=== PATIENT | male | born 1985 | race Asian ===

== ENCOUNTER 2020-04-07 09:39 | Outpatient (REF) | payer OTHER, SELFPAY ==
[2020-04-07 10:17] LABS: Hematocrit 43.5 % (42-52); Hemoglobin 14.7 g/dl (14.0-18.0); Mean Corpuscular HGB Conc 33.8 g/dl (31.0-36.0); Mean Corpuscular Hemoglobin 31.7 pg (27.0-33.0); Mean Corpuscular Volume 93.8 fL (80-98); Mean Platelet Volume 9.5 fL (9.4-12.4); Platelet Count 231 X10*3/uL (160-400); Red Blood Count 4.64 X10*6/uL (4.60-5.80); Red Cell Distribution Width 11.8 % (11.0-16.0); White Blood Count 4.9 X10*3/uL (4.8-10.8)
[2020-04-07 11:02] LABS: Alanine Aminotransferase 37 U/L (0-40); Albumin Level 4.5 g/dL (3.5-5.0); Alkaline Phosphatase 42 U/L (39-117); Aspartate Amino Transferase 20 U/L (5-37); Bilirubin Direct 0.3 mg/dL (0.0-0.5); Bilirubin Total 0.6 mg/dL (0.0-1.0)
[2020-04-08 14:37] LABS: Hepatitis B Viral DNA Qn - cp 1.15 Log IU/mL (NOT DETECTED); Hepatitis B Viral DNA Qn-IU/mL 14 IU/mL (NOT DETECTED)
[2020-04-09 16:26] LABS: FIB-ALT 33 U/L (9-46); FIB-Alpha-2-Macroglobulin 119 mg/dL (106-279); FIB-Apolipoprotein A1 123 mg/dL (94-176); FIB-GGT 18 U/L (3-90); FIB-Haptoglobin 50 mg/dL (43-212); FIB-Total Bilirubin 0.6 mg/dL (0.2-1.2); Liver Fibrosis Score 0.12; Liver Fibrosis Stage F0; Nec Inflam Act Grade A0; Nec Inflam Act Score 0.13
[2020-04-10 10:12] LABS: Hepatitis BE Antigen REACTIVE (NON-REACTIVE)
== END 2020-04-07 09:40 | disposition home or self-care (01) ==
LOC: HO.10HDL 09:39
PROVIDERS: Visit Provider Internal Medicine Gastroenterology
DX: B18.1 Chronic viral hepatitis B without delta-agent (principal)
CPT/HCPCS: 36415; 80076; 81596; 85027; 87350; 87517

== ENCOUNTER 2021-02-16 10:27 | Outpatient (REF) | payer OTHER, SELFPAY ==
[2021-02-16 11:02] LABS: Hematocrit 43.9 % (42.0-52.0); Hemoglobin 15.1 g/dl (14.0-18.0); Mean Corpuscular HGB Conc 34.4 g/dl (31.0-36.0); Mean Corpuscular Hemoglobin 32.5 pg (27.0-33.0); Mean Corpuscular Volume 94.4 fL (80.0-98.0); Mean Platelet Volume 9.6 fL (9.4-12.4); Platelet Count 226 X10*3/uL (160-400); Red Blood Count 4.65 X10*6/uL (4.60-5.80); Red Cell Distribution Width 12.1 % (11.0-16.0); White Blood Count 6.3 X10*3/uL (4.8-10.8)
[2021-02-16 11:25] LABS: Alanine Aminotransferase 65 U/L (0-40); Albumin Level 4.6 g/dL (3.5-5.0); Alkaline Phosphatase 46 U/L (39-117); Aspartate Amino Transferase 30 U/L (5-37); Bilirubin Direct 0.2 mg/dL (0.0-0.5); Bilirubin Total 0.4 mg/dL (0.0-1.0); Total Protein 7.3 g/dL (6.5-8.0)
[2021-02-18 14:26] LABS: Hepatitis BE Antigen REACTIVE (NON-REACTIVE)
[2021-02-23 08:07] LABS: Hepatitis B Viral DNA Qn - cp 2.99 Log IU/mL (NOT DETECTED); Hepatitis B Viral DNA Qn-IU/mL 968 IU/mL (NOT DETECTED)
== END 2021-02-16 10:28 | disposition home or self-care (01) ==
LOC: HO.LAB 10:27
PROVIDERS: PCP Internal Medicine; Visit Provider Internal Medicine Gastroenterology
DX: B19.10 Unspecified viral hepatitis B without hepatic coma (principal)
CPT/HCPCS: 36415; 80076; 85027; 87350; 87517

== ENCOUNTER 2021-03-10 09:10 | Outpatient (REF) | payer OTHER, SELFPAY ==
[2021-03-10 10:13] LABS: Alanine Aminotransferase 78 U/L (0-40); Albumin Level 4.3 g/dL (3.5-5.0); Alkaline Phosphatase 48 U/L (39-117); Aspartate Amino Transferase 35 U/L (5-37); Bilirubin Direct 0.2 mg/dL (0.0-0.5); Bilirubin Total 0.5 mg/dL (0.0-1.0)
[2021-03-13 13:46] LABS: Hepatitis B Viral DNA Qn - cp 2.66 Log IU/mL (NOT DETECTED); Hepatitis B Viral DNA Qn-IU/mL 456 IU/mL (NOT DETECTED)
== END 2021-03-10 09:11 | disposition home or self-care (01) ==
LOC: HO.LAB 09:10
PROVIDERS: Absent Provider Internal Medicine; PCP Internal Medicine; Visit Provider Internal Medicine Gastroenterology
DX: B18.1 Chronic viral hepatitis B without delta-agent (principal)
CPT/HCPCS: 36415; 80076; 87517

== ENCOUNTER 2021-04-27 08:54 | Outpatient (REF) | payer OTHER, SELFPAY ==
[2021-04-27 10:15] LABS: Alanine Aminotransferase 70 U/L (0-40); Albumin Level 4.3 g/dL (3.5-5.0); Alkaline Phosphatase 52 U/L (39-117); Aspartate Amino Transferase 27 U/L (5-37); Bilirubin Direct 0.2 mg/dL (0.0-0.5); Bilirubin Total 0.4 mg/dL (0.0-1.0); Total Protein 6.8 g/dL (6.5-8.0)
[2021-04-30 09:31] LABS: Hepatitis B Viral DNA Qn - cp 2.56 Log IU/mL (NOT DETECTED); Hepatitis B Viral DNA Qn-IU/mL 365 IU/mL (NOT DETECTED)
[2021-05-04 15:26] LABS: FIB-ALT 56 U/L (9-46); FIB-Alpha-2-Macroglobulin 118 mg/dL (106-279); FIB-Apolipoprotein A1 129 mg/dL (94-176); FIB-GGT 28 U/L (3-90); FIB-Haptoglobin 43 mg/dL (43-212); FIB-Total Bilirubin 0.4 mg/dL (0.2-1.2); Liver Fibrosis Score 0.11; Liver Fibrosis Stage F0; Nec Inflam Act Grade A0-A1; Nec Inflam Act Score 0.27
== END 2021-04-27 08:55 | disposition home or self-care (01) ==
LOC: HO.LAB 08:54
PROVIDERS: PCP Internal Medicine; Visit Provider Internal Medicine Gastroenterology
DX: B18.1 Chronic viral hepatitis B without delta-agent (principal)
CPT/HCPCS: 36415; 80076; 81596; 87517

== ENCOUNTER 2022-02-22 09:20 | Outpatient (REF) | payer OTHER, SELFPAY ==
[2022-02-22 11:20] LABS: MANUAL DIFF FLAG NO
[2022-02-22 11:26] LABS: Basophils Percent Auto 0.6 % (0-2); Eosinophils Absolute Auto 0.2 X10*3/uL (0.0-0.4); Eosinophils Percent Auto 2.8 % (0-4); Hematocrit 45.1 % (42.0-52.0); Hemoglobin 15.4 g/dl (14.0-18.0); Imm Gran Abs Auto 0.01 X10*3/uL (0.00-0.03); Imm Gran Pct Auto 0.1 % (0.0-0.4); Lymphocytes Absolute Auto 1.8 X10*3/uL (1.2-4.9); Lymphocytes Percent Auto 26.7 % (20-40); Mean Corpuscular HGB Conc 34.1 g/dl (31.0-36.0); Mean Corpuscular Hemoglobin 31.6 pg (27.0-33.0); Mean Corpuscular Volume 92.6 fL (80.0-98.0); Mean Platelet Volume 9.9 fL (9.4-12.4); Monocytes Absolute Auto 0.5 X10*3/uL (0.1-1.2); Monocytes Percent Auto 6.9 % (2-11); Neutrophils Absolute Auto 4.3 x10*3/uL (2.0-8.3); Neutrophils Percent Auto 62.9 % (45-73); Platelet Count 254 X10*3/uL (160-400); Red Blood Count 4.87 X10*6/uL (4.60-5.80); Red Cell Distribution Width 11.9 % (11.0-16.0); White Blood Count 6.8 X10*3/uL (4.8-10.8)
[2022-02-22 12:03] LABS: Alanine Aminotransferase 42 U/L (0-40); Albumin Level 4.4 g/dL (3.5-5.0); Alkaline Phosphatase 55 U/L (39-117); Aspartate Amino Transferase 23 U/L (5-37); Bilirubin Direct 0.2 mg/dL (0.0-0.5); Bilirubin Total 0.4 mg/dL (0.0-1.0); Total Protein 6.8 g/dL (6.5-8.0)
[2022-02-23 20:14] LABS: Hepatitis B Viral DNA Qn - cp 1.61 Log IU/mL (NOT DETECTED); Hepatitis B Viral DNA Qn-IU/mL 41 IU/mL (NOT DETECTED)
[2022-02-24 01:14] LABS: Hepatitis BE Antibody NON-REACTIVE (NON-REACTIVE); Hepatitis BE Antigen REACTIVE (NON-REACTIVE)
== END 2022-02-22 09:21 | disposition home or self-care (01) ==
LOC: HO.10HDL 09:20
PROVIDERS: Visit Provider Internal Medicine Gastroenterology
DX: B18.1 Chronic viral hepatitis B without delta-agent (principal)
CPT/HCPCS: 36415; 80076; 85025; 86707; 87350; 87517

== ENCOUNTER 2023-03-05 09:56 | Outpatient (REF) | payer OTHER, SELFPAY ==
[2023-03-05 12:03] LABS: MANUAL DIFF FLAG NO
[2023-03-05 12:17] LABS: Basophils Percent Auto 0.6 % (0-2); Eosinophils Absolute Auto 0.2 X10*3/uL (0.0-0.4); Eosinophils Percent Auto 2.2 % (0-4); Hematocrit 43.4 % (42.0-52.0); Imm Gran Abs Auto 0.02 X10*3/uL (0.00-0.03); Imm Gran Pct Auto 0.3 % (0.0-0.4); Lymphocytes Absolute Auto 1.6 X10*3/uL (1.2-4.9); Lymphocytes Percent Auto 23.8 % (20-40); Mean Corpuscular HGB Conc 34.6 g/dl (31.0-36.0); Mean Corpuscular Hemoglobin 32.4 pg (27.0-33.0); Mean Corpuscular Volume 93.7 fL (80.0-98.0); Mean Platelet Volume 9.9 fL (9.4-12.4); Monocytes Absolute Auto 0.5 X10*3/uL (0.1-1.2); Monocytes Percent Auto 7.3 % (2-11); Neutrophils Absolute Auto 4.4 x10*3/uL (2.0-8.3); Neutrophils Percent Auto 65.8 % (45-73); Platelet Count 241 X10*3/uL (160-400); Red Blood Count 4.63 X10*6/uL (4.60-5.80); White Blood Count 6.7 X10*3/uL (4.8-10.8)
[2023-03-05 12:29] LABS: INTERNATIONAL NORM RATIO 0.9 (0.9-1.1)
[2023-03-05 12:31] LABS: Alanine Aminotransferase 45 U/L (0-40); Albumin Level 4.4 g/dL (3.5-5.0); Alkaline Phosphatase 48 U/L (39-117); Aspartate Amino Transferase 25 U/L (5-37); Bilirubin Direct 0.1 mg/dL (0.0-0.5); Bilirubin Total 0.4 mg/dL (0.0-1.0)
[2023-03-05 13:03] LABS: ~Hepatitis B Surface Antibody NONREACTIVE (Nonreactive)
[2023-03-05 15:02] LABS: HBsAGNum2 Reactive; HBsAGNum3 Reactive; Hepatitis B Surface Antigen Rep Reactive (Negative); Hepatitis B Surface Antigen Retest CNFM (Negative)
[2023-03-07 19:49] LABS: Hepatitis B Viral DNA Qn - cp <1.00 DETECTED Log IU/mL (NOT DETECTED); Hepatitis B Viral DNA Qn-IU/mL <10 DETECTED IU/mL (NOT DETECTED)
[2023-03-09 23:13] LABS: Hepatitis BE Antibody NON-REACTIVE (NON-REACTIVE)
[2023-03-10 11:39] LABS: Hepatitis BE Antigen REACTIVE (NON-REACTIVE)
== END 2023-03-05 09:57 | disposition home or self-care (01) ==
LOC: HO.10HDL 09:56
PROVIDERS: Visit Provider Internal Medicine Gastroenterology
DX: B18.1 Chronic viral hepatitis B without delta-agent (principal)
CPT/HCPCS: 36415; 80076; 85025; 85610; 86706; 86707; 87340; 87350; 87517

== ENCOUNTER 2023-03-28 09:30 | Outpatient (AMB) | payer OTHER, SELFPAY ==
--- NOTE | 2023-03-28 09:37 | MHC.PC.OV ---
Vital Signs 03/28/23 09:38 Height 5 ft 7 in Weight 157 lb 6 oz BMI 24.6 BP 106/72 Blood Pressure Location Lt brachial Position Sitting Pulse 85 Pulse Source Pulse Oximeter Pulse Oximetry (%) 96 Oxygen Delivery Method Room Air Intake Visit Reasons: possible pink eye/ OU eyes hurt Regulator Operator Required: No Accompanied by: Self / Same As Patient Allergies No Known Allergies [No Known Allergies*] Allergy (Unverified 04/02/23 02:15) Medication List - Last Reconciled 04/02/23 by Marcelo Guzman MD azithromycin take 500 mg today (day 1), then 250 mg for 4 days (days 2-5) PO polymyxin B sulf-trimethoprim 10,000 unit- 1 mg/mL 1 drp ophthalmic (eye) QID 7 days triamcinolone acetonide 0.1% 1 appl topical BID PRN Tobacco use date assessed: 03/28/23 Dental Screening Dental Screen Date: 03/28/23 Did you have a dental visit in the last 12 months?: No Did you have a dental problem in the last 6 months where you did not have access to dental care?: No Was dental information given to patient?: Patient has dentist HPI possible pink eye/ OU eyes hurt HPI Details Patient comes in today complaining of increased redness and irritation of both of his eyes for the past 2 to 3 days Recalls that he woke up a couple of days ago with a lot of dried discharge from his eyes, especially on the left eye Denies any blurring of his vision Adds that he's had some symptoms of cough and congestion for a few days now He denies any fever or sore throat Denies any chest pains, no SOB No nausea/vomiting, no abdominal pain No change in bowel habits noted [facility] Medical History (Updated 04/02/23 @ 02:32 by Marcelo Guzman MD) Chronic hepatitis B Surgical History (Updated 04/02/23 @ 02:25 by Marcelo Guzman MD) No pertinent past surgical history Family History Father Essential hypertension Social History Housing: House Patient Tobacco Use Status: Current someday Tobacco user e-Cigarette/Vaping Use: Never Used service: No Current occupational status: employed Cognitive needs: No Hearing needs: No Vision needs: No Questionnaire PHQ-9 Over the last 2 weeks, how often have you been bothered by any of the following problems? 1. Little interest or pleasure in doing things: not at all 2. Feeling down, depressed, or hopeless: not at all 3. Trouble falling or staying asleep, or sleeping too much: not at all 4. Feeling tired or having little energy: not at all 5. Poor appetite or overeating: not at all 6. Feeling bad about yourself - or that you are a failure or have let yourself or your family down: not at all 7. Trouble concentrating on things, such as reading the newspaper or watching television: not at all 8. Moving or speaking so slowly that other people could have noticed. Or the opposite - being so fidgety or restless that you have been moving around a lot more than usual: not at all 9. Thoughts that you would be better off or of hurting yourself in some way: not at all Total score: 0 Depression Screening Interpretation: Negative Depression Screening Done: Yes [id number] - PHQ-9 Billing: Yes Source: Developed by Drs. Radu Loredo, Shirin Sanderson, Denzel Lea and colleagues, with an educational narendra from [employer]. Thrive Questionnaire Date Thrive assessed: 03/28/23 I am a: Patient What is your living situation today?: I have a steady place to live Within the past 12 months, did the food you bought not last and you didn't have the money to get more?: Never true Within the past 12 months, did you worry whether your food would run out before you got money to buy more?: Never true Do you have trouble paying for medicines?: No Do you have trouble getting transportation to medical appointments?: No Do you have trouble paying your heating and electricity bill?: No Do you have trouble taking care of your child, family member or friend?: No Do you have trouble with day-to-day activities such as bathing, preparing meals, shopping, managing finances, etc.?: No Are you currently unemployed and looking for a job?: No Are you interested in more education?: No Please select the resources that you would like help with: None Currently or been in a relationship where the following occur: no concerns reported THRIVE Score: 0 AUDIT C Alcohol Use Questionnaire (AUDIT-C) 1. How often do you have a drink containing alcohol?: 2-4 times a month 2. How many drinks containing alcohol do you have on a typical day when you are drinking?: 1 or 2 3. How often do you have six or more drinks on one occasion?: Never Total Score: 2 Score Reviewed/Action Taken: Yes MISAEL-7 AMB Questionnaire MISAEL-7 Date MISAEL - 7 assessed: 03/28/23 Feeling nervous, anxious, or on edge: 0 = Not at all Not being able to stop or control worryin = Not at all Worrying too much about different things: 0 = Not at all Trouble relaxin = Not at all Being so restless that it is hard to sit still: 0 = Not at all Becoming easily annoyed or irritable: 0 = Not at all Feeling afraid as if something awful might happen: 0 = Not at all Total MISAEL-7 score (0-4 normal; 5-9 mild; 10-14 moderate; 15-21 severe): 0 Source: Developed by Drs. Radu Loredo, Shirin Sanderson, Denzel Lea and colleagues, with an educational narendra from [employer]. Review of Systems Const Denies chills, Denies fatigue, Denies fever(s) and Denies headache(s) Eyes Denies blurry vision, Reports eye discharge (in both eyes) and Reports irritation (both eyes) ENT Denies dysphagia, Denies dizziness, Denies otalgia, Denies headache(s), Reports nasal congestion, Denies neck pain, Denies odynophagia and Denies sore throat Card Denies chest pain, Denies palpitations and Denies dyspnea Resp Denies chest congestion, Reports cough (on and off lately; mostly non-productive), Denies dyspnea and Denies wheezing GI Denies abdominal pain, Denies constipation, Denies dysphagia, Denies heartburn, Denies diarrhea, Denies nausea, Denies odynophagia and Denies vomiting Denies dysuria, Denies nocturia and Denies urinary frequency Musc Denies neck pain Skin/Breast Denies rash Neuro Denies dizziness and Denies headache(s) Endo Denies fatigue and Denies palpitations Aller/Immun Denies wheezing Physical exam (Primary Care) Vital Signs: Last Vital Signs Pulse 85 03/28/23 09:38 BP 106/72 03/28/23 09:38 Pulse Ox 96 03/28/23 09:38 Oxygen Delivery Method Room Air 03/28/23 09:38 BMI result Body Mass Index 24.6 Tobacco/Smoking Status: Tobacco use Status Tobacco use date assessed 03/28/23 03/28/23 09:46 Patient Tobacco Use Status Current someday Tobacco 03/28/23 09:46 e-Cigarette/Vaping Use Never Used 03/28/23 09:46 PHQ-9: PHQ-9 Score PHQ-9: Total score 0 03/28/23 10:01 Depression Screening Interpretation: Negative Thrive Assessment: Date of Thrive Assessment Date Thrive assessed 03/28/23 03/28/23 09:46 Currently or been in a relationship where the following occur: no concerns reported Const General: no acute distress and alert HENMT Ears: TM's normal bilaterally and EAC's normal Throat: Yes posterior oropharynx normal and Yes tonsils normal (no TP congestion) Eyes Conjunctivae: conjunctival abnormal bilateral conjunctival injection Neck Neck: Yes no lymphadenopathy and Yes supple Resp Auscultation: clear to auscultation bilaterally, no rales and no wheezes Cardio Rate: regular rate Rhythm: regular rhythm Heart sounds: no murmurs GI Palpation (GI): Soft to palpation, nontender and No hepatosplenomegaly present Skin General skin exam: no rashes or lesions noted Extrem General: Yes no clubbing, cyanosis or edema Assessment and Plan Assessment & Plan (1) Acute conjunctivitis, bilateral: Code(s): H10.33 - Unspecified acute conjunctivitis, bilateral Qualifiers: Acute conjunctivitis type: unspecified Qualified Code(s): H10.33 - Unspecified acute conjunctivitis, bilateral Plan: Will start patient on Polytrim eyedrops to apply 1 drop to each eye QID x 7 days (2) Upper respiratory tract infection: Code(s): J06.9 - Acute upper respiratory infection, unspecified Qualifiers: URI type: unspecified URI Qualified Code(s): J06.9 - Acute upper respiratory infection, unspecified Plan: Will start patient empirically on Azithromycin x 5 days Plan To return in 6 months for his annual physical examination Medications: New azithromycin take 500 mg today (day 1), then 250 mg for 4 days (days 2-5) PO 6 tabs 0RF Refilled polymyxin B sulf-trimethoprim 10,000 unit- 1 mg/mL 1 drp ophthalmic (eye) QID 7 days 10 mL 0RF polymyxin B sulf-trimethoprim 10,000 unit- 1 mg/mL 1 drp ophthalmic (eye) QID 7 days 10 mL 0RF Coding Level of Care Code Est Pt Level 3 (54160) Diagnoses Acute conjunctivitis of both eyes, unspecified acute conjunctivitis type H10.33 Acute conjunctivitis type: unspecified Upper respiratory tract infection, unspecified type J06.9 URI type: unspecified URI
[2023-03-28 09:38] VITALS: BP 106/72; PULSE 85; O2SAT 96; BMI 24.6
== END 2023-03-28 10:04 | disposition home or self-care (01) ==
PROVIDERS: PCP Internal Medicine; Visit Provider Internal Medicine
DX: H10.33 Unspecified acute conjunctivitis, bilateral (principal); J06.9 Acute upper respiratory infection, unspecified
CPT/HCPCS: 99213

== ENCOUNTER 2023-09-17 09:59 | Outpatient (AMB) | payer OTHER, SELFPAY ==
[2023-09-17 10:13] VITALS: BP 128/78; PULSE 96; O2SAT 98; BMI 25.1
--- NOTE | 2023-09-17 10:13 | MHC.PC.OV ---
Vital Signs 09/17/23 10:13 Height 5 ft 7 in Weight 160 lb 6 oz BMI 25.1 BP 128/78 Blood Pressure Location Lt brachial Position Sitting Pulse 96 Pulse Source Pulse Oximeter Pulse Oximetry (%) 98 Oxygen Delivery Method Room Air Intake Visit Reasons: ANNUAL PE- NEEDS PHQ9 Intake Note: Patient is here today for a physical. Payroll Services Analyst Required: No Accompanied by: Self / Same As Patient Allergies No Known Allergies [No Known Allergies*] Allergy (Unverified 09/17/23 10:41) Medication List - Last Reconciled 09/17/23 by Marcelo Guzman MD tenofovir disoproxil fumarate 300 mg PO DAILY Tobacco use date assessed: 03/28/23 Dental Screening Dental Screen Date: 03/28/23 HPI ANNUAL PE- NEEDS PHQ9 HPI Details Patient comes in today for his annual physical examination States that he feels okay Denies any headaches or dizziness Denies any chest pains, no SOB No nausea/vomiting, no abdominal pain No change in bowel habits noted He denies any acute urinary symptoms He continues to follow up with Dr. Garcia regularly (once a year) for his chronic hepatitis B and currently remains on Viread 300 mg QD He also normally gets yearly labs done for Dr. Garcia (labs last done in February 2023) to monitor his LFTs but he has not had his other labs, including his fasting lipids, done since 2017 [facility] Medical History (Updated 09/17/23 @ 11:02 by Marcelo Guzman MD) Smoker Chronic hepatitis B Surgical History No pertinent past surgical history Family History Father Essential hypertension Social History Housing: House Patient Tobacco Use Status: Current someday Tobacco user e-Cigarette/Vaping Use: Never Used service: No Current occupational status: employed Cognitive needs: No Hearing needs: No Vision needs: No Questionnaire PHQ-9 Over the last 2 weeks, how often have you been bothered by any of the following problems? 1. Little interest or pleasure in doing things: not at all 2. Feeling down, depressed, or hopeless: not at all 3. Trouble falling or staying asleep, or sleeping too much: not at all 4. Feeling tired or having little energy: not at all 5. Poor appetite or overeating: not at all 6. Feeling bad about yourself - or that you are a failure or have let yourself or your family down: not at all 7. Trouble concentrating on things, such as reading the newspaper or watching television: not at all 8. Moving or speaking so slowly that other people could have noticed. Or the opposite - being so fidgety or restless that you have been moving around a lot more than usual: not at all 9. Thoughts that you would be better off or of hurting yourself in some way: not at all Total score: 0 Depression Screening Interpretation: Negative Depression Screening Done: Yes 38165 - PHQ-9 Billing: Yes Source: Developed by Drs. Radu Loredo, Shirin Sanderson, Denzel Lea and colleagues, with an educational narendra from [employer]. Thrive Questionnaire Date Thrive assessed: 03/28/23 AUDIT C Alcohol Use Questionnaire (AUDIT-C) 1. How often do you have a drink containing alcohol?: 2-4 times a month 2. How many drinks containing alcohol do you have on a typical day when you are drinking?: 1 or 2 3. How often do you have six or more drinks on one occasion?: Never Total Score: 2 Score Reviewed/Action Taken: Yes MISAEL-7 AMB Questionnaire MISAEL-7 Date MISAEL - 7 assessed: 03/28/23 Source: Developed by Drs. Radu Loredo, Shirin Sanderson, Denzel Lea and colleagues, with an educational narendra from [employer]. Review of Systems Const Denies chills, Denies fatigue, Denies fever(s), Denies headache(s), Denies malaise and Denies weakness Eyes Denies blurry vision, Denies change in vision, Denies irritation and Denies itchy eyes ENT Denies dysphagia, Denies dizziness, Denies otalgia, Denies headache(s), Denies nasal congestion, Denies neck pain, Denies odynophagia and Denies sore throat Card Denies chest pain, Denies rapid heart rate, Denies irregular heart rhythm, Denies palpitations and Denies dyspnea Resp Denies chest congestion, Denies cough, Denies dyspnea and Denies wheezing GI Denies abdominal pain, Denies bloating, Denies constipation, Denies dysphagia, Denies heartburn, Denies diarrhea, Denies nausea, Denies odynophagia and Denies vomiting Denies hematuria, Denies difficulty urinating, Denies dysuria, Denies urinary frequency and Denies urinary urgency Musc Denies back pain, Denies arthralgias, Denies joint swelling, Denies muscle weakness and Denies neck pain Skin/Breast Denies change in pigmentation, Denies lesions, Denies rash and Denies unusual bruising Neuro Denies dizziness, Denies headache(s), Denies paresthesias and Denies weakness Endo Denies fatigue and Denies palpitations Aller/Immun Denies itchy eyes and Denies wheezing Physical exam (Primary Care) Vital Signs: Last Vital Signs Pulse 96 09/17/23 10:13 BP 128/78 09/17/23 10:13 Pulse Ox 98 09/17/23 10:13 Oxygen Delivery Method Room Air 09/17/23 10:13 BMI result Body Mass Index 25.1 Tobacco/Smoking Status: Tobacco use Status Tobacco use date assessed 03/28/23 09/17/23 10:17 Patient Tobacco Use Status Current someday Tobacco 09/17/23 10:17 e-Cigarette/Vaping Use Never Used 09/17/23 10:17 PHQ-9: PHQ-9 Score PHQ-9: Total score 0 09/17/23 10:17 Depression Screening Interpretation: Negative Thrive Assessment: Date of Thrive Assessment Date Thrive assessed 03/28/23 09/17/23 10:17 Const General: no acute distress, alert and awake Orientation/consciousness: patient oriented x3 HENMT Head: Yes normocephalic and Yes atraumatic Ears: external ears normal, TM's normal bilaterally and EAC's normal General nose exam: No nasal discharge present Face and sinus: Yes normal facial exam and Yes sinuses nontender Teeth and gingiva: dentition normal Throat: Yes posterior oropharynx normal and Yes tonsils normal (no TP congestion) Eyes Eyelids: Yes eyelids normal Conjunctivae: conjunctivae normal Pupils: Equal, round and reactive pupils present EOM: EOMs intact bilaterally Neck Neck: Yes no lymphadenopathy and Yes supple Thyroid: Thyroid normal Resp Auscultation: clear to auscultation bilaterally, no rales and no wheezes Cardio Rate: regular rate Rhythm: regular rhythm Heart sounds: no murmurs GI Palpation (GI): Soft to palpation, nontender and No hepatosplenomegaly present Auscultation: normal bowel sounds General: Yes no CVA tenderness Back/Spine/Pelvis Back: no CVA tenderness Thoracic/Lumbar Spine: thoracic and lumbar spine normal to inspection Skin Lesions: no lesions Rashes: no rashes Neuro General: patient oriented x3, moves all extremities, no focal motor deficits and CN's II-XI intact bilaterally Cranial nerves: Yes Equal, round and reactive pupils present Cognition (Neuro): normal cognition Gait exam (Neuro): Normal gait present Extrem General: Yes no clubbing, cyanosis or edema Assessment and Plan Assessment & Plan (1) Annual physical exam: Code(s): Z00.00 - Encounter for general adult medical examination without abnormal findings Plan: Results of his labs done back in February 2023 reviewed and discussed with patient Advised that these labs are mostly to follow up on his LFTs and his hepatitis B and do not include other parameters like his thyroid, cholesterol levels and vitamin D level Will have him get these (labs) checked/done at the same time when he goes for his yearly labs for Dr. Garcia at the end of the year (2) Chronic hepatitis B: Comment: In treatment with Tenofovir (Viread) QD - sees Dr. Garcia Code(s): B18.1 - Chronic viral hepatitis B without delta-agent Plan: Continue Tenofovir 300 mg QD Follow up with Dr. Garcia as scheduled for continuing management and follow up of his chronic hepatitis B (3) Smoker: Code(s): F17.200 - Nicotine dependence, unspecified, uncomplicated Plan: Counseled again on complete smoking cessation Plan To return in 1 year for his next annual physical examination Orders: Orders Comprehensive [place]. Panel Fast 01/19/24 E78.00 - Pure hypercholesterolemia, unspecified Complete Blood Count Auto Diff 01/19/24 D64.9 - Anemia, unspecified UA CC w/rflx Micro + Cult 01/19/24 R30.0 - Dysuria Lipid Panel 01/19/24 E78.00 - Pure hypercholesterolemia, unspecified TSH reflex Free T4 01/19/24 E78.00 - Pure hypercholesterolemia, unspecified Vitamin D 25-OH Total 01/19/24 E55.9 - Vitamin D deficiency, unspecified Coding Level of Care Code Est Pt Prev Care 18-39y(38962) Diagnoses Annual physical exam Z00.00 Chronic hepatitis B B18.1 Smoker F17.200
== END 2023-09-17 11:00 | disposition home or self-care (01) ==
PROVIDERS: PCP Internal Medicine; Visit Provider Internal Medicine
DX: Z00.00 Encounter for general adult medical examination without abnormal findings (principal); B18.1 Chronic viral hepatitis B without delta-agent; F17.200 Nicotine dependence, unspecified, uncomplicated
CPT/HCPCS: 99395

== ENCOUNTER 2024-03-05 09:27 | Outpatient (REF) | payer OTHER, SELFPAY ==
[2024-03-05 10:20] LABS: MANUAL DIFF FLAG NO
[2024-03-05 10:27] LABS: Basophils Percent Auto 0.5 % (0-2); Eosinophils Absolute Auto 0.1 X10*3/uL (0.0-0.4); Eosinophils Percent Auto 2.2 % (0-4); Hematocrit 43.6 % (42.0-52.0); Hemoglobin 15.2 g/dl (14.0-18.0); Imm Gran Abs Auto 0.01 X10*3/uL (0.00-0.03); Imm Gran Pct Auto 0.2 % (0.0-0.4); Lymphocytes Absolute Auto 1.8 X10*3/uL (1.2-4.9); Mean Corpuscular HGB Conc 34.9 g/dl (31.0-36.0); Mean Corpuscular Hemoglobin 32.4 pg (27.0-33.0); Mean Platelet Volume 9.7 fL (9.4-12.4); Monocytes Absolute Auto 0.4 X10*3/uL (0.1-1.2); Monocytes Percent Auto 7.4 % (2-11); Neutrophils Absolute Auto 3.5 x10*3/uL (2.0-8.3); Neutrophils Percent Auto 59.7 % (45-73); Platelet Count 230 X10*3/uL (160-400); Red Blood Count 4.69 X10*6/uL (4.60-5.80); Red Cell Distribution Width 12.2 % (11.0-16.0); White Blood Count 5.8 X10*3/uL (4.8-10.8)
[2024-03-05 10:41] LABS: INTERNATIONAL NORM RATIO 0.9 (0.9-1.1); Prothrombin Time 10.9 SEC (10.9-12.4)
[2024-03-05 10:45] LABS: Alanine Aminotransferase 57 U/L (0-40); Albumin Level 4.6 g/dL (3.5-5.0); Alkaline Phosphatase 49 U/L (39-117); Aspartate Amino Transferase 34 U/L (5-37); Bilirubin Direct 0.2 mg/dL (0.0-0.5); Bilirubin Total 0.6 mg/dL (0.0-1.0); Total Protein 7.6 g/dL (6.5-8.0)
[2024-03-05 11:57] LABS: HBS Num1 0.82 mIU/mL (0-7.99); HBsAGNum1 6238.73 S/CO (0.00-0.99); ~Hepatitis B Surface Antibody NONREACTIVE (Nonreactive)
[2024-03-05 12:58] LABS: HBsAGNum2 Reactive; HBsAGNum3 Reactive; Hepatitis B Surface Antigen Retest CNFM (Negative)
[2024-03-07 15:48] LABS: Hepatitis B Viral DNA Qn - cp <1.00 DETECTED Log IU/mL (NOT DETECTED); Hepatitis B Viral DNA Qn-IU/mL <10 DETECTED IU/mL (NOT DETECTED)
[2024-03-07 21:53] LABS: Hepatitis BE Antibody NON-REACTIVE (NON-REACTIVE); Hepatitis BE Antigen REACTIVE (NON-REACTIVE)
[2024-03-12 08:28] LABS: FIB-ALT 39 U/L (9-46); FIB-Alpha-2-Macroglobulin 112 mg/dL (106-279); FIB-Apolipoprotein A1 138 mg/dL (94-176); FIB-GGT 28 U/L (3-90); FIB-Haptoglobin 48 mg/dL (43-212); FIB-Total Bilirubin 0.5 mg/dL (0.2-1.2); Liver Fibrosis Score 0.11; Liver Fibrosis Stage F0; Nec Inflam Act Grade A0; Nec Inflam Act Score 0.17; Reference ID 5307832
== END 2024-03-05 09:28 | disposition home or self-care (01) ==
LOC: HO.10HDL 09:27
PROVIDERS: Visit Provider Internal Medicine Gastroenterology
DX: B18.1 Chronic viral hepatitis B without delta-agent (principal)
CPT/HCPCS: 36415; 80076; 81596; 85025; 85610; 86706; 86707; 87340; 87350; 87517

== ENCOUNTER 2024-04-03 07:47 | Outpatient (REF) | payer OTHER, SELFPAY ==
--- NOTE | ~2024-04-03 | US_ITS ---
EXAMINATION: US COMPLETE ABDOMEN WITH LIVER ELASTOGRAPHY CLINICAL INFORMATION: Chronic hepatitis B. COMPARISON: No prior elastography. Abdomen US dated 04/17/2019. TECHNIQUE: Real-time imaging of the abdominal viscera. Noninvasive ultrasound liver fibrosis assessment is performed using [employer] point quantification shear wave elastography (pSWE) with a C5-2 MHz transducer. Multiple elastography samples are obtained. FINDINGS: PANCREAS: The visualized pancreatic head and body are normal in appearance. The remainder of the pancreas is obscured from visualization by the overlying bowel gas. ABDOMINAL AORTA: No aortic aneurysm is seen. INFERIOR VENA CAVA: Visualized portions are normal. LIVER: The liver demonstrates normal size, contour and minimally increased echogenicity. No focal lesion or intrahepatic biliary duct dilatation. The right lobe measures 16.7 cm in length. The left lobe measures 11.0 cm in length. Portal flow is towards the liver (hepatopetal). Shear wave liver elastography median stiffness is 1.94 m/s (reference: normal median stiffness is 1.3 m/s or less). IQR/median stiffness to assess sampling precision is 0.08 (reference: good quality data set is IQR/median stiffness of 0.15 or less). GALLBLADDER: The gallbladder is physiologically distended without evidence of stones, sludge, polyps, wall thickening or pericholecystic fluid. COMMON BILE DUCT: Normal in caliber measuring 0.5 cm in diameter. RIGHT KIDNEY: No hydronephrosis. No renal calculi or focal parenchymal lesions. The kidney measures 10.9 cm in maximum dimension. LEFT KIDNEY: No hydronephrosis. No renal calculi or focal parenchymal lesions. The kidney measures 11.5 cm in maximum dimension. SPLEEN: Unremarkable. The spleen measures 9.6 cm in maximum dimension. FREE FLUID: None seen. US/US abdomen comp w elastography IMPRESSION: 1. Normal hepatic size with minimally increased hepatic echogenicity. No suspicious lesion. 2. Liver elastography: Measurements are suggestive of compensated advanced chroniic liver disease but need further test for confirmation. 3. Normal gallbladder, bile ducts, spleen, and right kidney REFERENCE: Society of Radiologists in Ultrasound Liver Stiffness Thresholds (2019): LIVER STIFFNESS THRESHOLDS: *Liver Stiffness equal or less than 1.3 m/s: High probability of being normal. *Liver Stiffness less than 1.7 m/s: In the absence of other known clinical signs, rules out compensated advanced chronic liver disease. *Liver Stiffness 1.7-2.1 m/s: Suggestive of compensated advanced chronic liver disease but need further test for confirmation. *Liver Stiffness over 2.1 m/s: Rules in compensated advanced chronic liver disease. *Liver Stiffness over 2.4 m/s: Suggestive of clinically significant portal hypertension. QUALITY OF DATA SET: *IQR/Median value equal or less than 0.15 implies a quality data set. *IQR/Median value over 0.15 implies a poor quality data set. SIGNIFICANT CHANGE FROM PRIOR EXAM: Significant change if liver stiffness measurement is 10% or greater from prior exam. OTHER CONSIDERATIONS: The stage of liver fibrosis may be overestimated in the setting of acute hepatitis, liver inflammation, elevated liver function tests, hepatic vascular congestion, obstructive cholestasis, non-fasting state, and infiltrative diseases such as amyloidosis and lymphoma. In some patients with NAFLD, the liver stiffness thresholds for compensated advanced chronic liver disease may be lower. In causes other than viral hepatitis and NAFLD, liver stiffness thresholds are not well established. Electronically signed by: Mane Vega MD 04/03/2024 01:58 PM [facility]
--- OUTSIDE RECORDS SUMMARY | 2024-04-03 07:50 | XMS_ITS ---
Author Organization [facility] Address [address] [place] [address] Care Team Providers Care Restrooms Or Lounges Maid Name Role Phone Marcelo Guzman MD Primary Care Provider Alex Tristan Jr ALLERGIES No Known Allergies RESULTS Component Value Reference Range Notes Liver Fibrosis Pnl Reviewed date:03/17/2024 08:46:24 AM Interpretation: Performing Lab:[facility], [address] [place] [id number] Notes/Report: Liver Fibrosis Score 0.11 Liver Fibrosis Stage F0 Liver Fibrosis Interpretation SEE NOTE no fibrosis Fibro Test Score (f) Metavir Score f>=0 and f<=0.21 : F0 (no fibrosis) f>0.21 and f<=0.27 : F0-F1 (no fibrosis) f>0.27 and f<=0.31 : F1 (minimal fibrosis) f>0.31 and f<=0.48 : F1-F2 (minimal fibrosis) f>0.48 and f<=0.58 : F2 (moderate fibrosis) f>0.58 and f<=0.72 : F3 (advanced fibrosis) f>0.72 and f<=0.74 : F3-F4 (advanced fibrosis) f>0.74 and f<=1.00 : F4 (severe fibrosis) Nec Inflam Act Score 0.17 Nec Inflam Act Grade A0 Nec Inflam Act Interpretation SEE NOTE no activity ActiTest Score (a) Metavir Score a>=0 and a<=0.17 : A0 (no activity) a>0.17 and a<=0.29 : A0-A1 (no activity) a>0.29 and a<=0.36 : A1 (minimal activity) a>0.36 and a<=0.52 : A1-A2 (minimal activity) a>0.52 and a<=0.60 : A2 (significant activity) a>0.60 and a<=0.62 : A2-A3 (significant activity) a>0.62 and a<=1.00 : A3 (severe activity) YQO-Xazll-2-Macroglobulin 112 106-279 mg/dL FIB-Haptoglobin 48 43-212 mg/dL FIB-Apolipoprotein A1 138 94-176 mg/dL FIB-Total Bilirubin 0.5 0.2-1.2 mg/dL FIB-GGT 28 3-90 U/L FIB-ALT 39 9-46 U/L Reference ID [id number] Footnote SEE NOTE The reliability of results is dependent on compliance with the preanalytical and analytical conditions recommended by [employer]. The tests have to be deferred for: acute hemolysis, acute hepatitis, acute inflammation, extra hepatic cholestasis. The advice of a specialist should be sought for interpretation in chronic hemolysis and Gilbert's syndrome. The test interpretation is not validated in liver transplant patients. Isolated extreme values of one of the components should lead to caution in interpreting the results. In case of discordance between a biopsy result and a test, it is recommended to seek the advice of a specialist. The causes of these discordances could be due to a flaw of the test or to a flaw in the biopsy: i.e. a liver biopsy has a 33% variability rate for one fibrosis stage. FibroTest is interpretable for chronic hepatitis B and C, alcoholic and non alcoholic steatosis. ActiTest is interpretable for chronic hepatitis B and C. The performance characteristics have been determined by [facility]. It has not been cleared or approved by the U.S. Food and Drug Administration. Performance characteristics refer to the analytical performance of the test. [employer], the associated logo, [employer] and all associated [employer] gibson are the registered trademarks of [employer]. All third constitution party gibson - (R) and (TM) - are the property of their respective owners. (C) 1572-2597 [employer]. All rights reserved. THIS TEST WAS PERFORMED AT: [facility] [place] [address] [place] [address] DANIEL DOHERTY MD,PHD,CRISTY REASON FOR VISIT Patient presents today for Hep B MEDICATIONS Medication SIG (Take, Route, Frequency, Duration) Notes Start Date End Date Status Tenofovir Disoproxil Fumarate 300 MG TAKE ONE TABLET BY MOUTH EVERY DAY for 90 Active SOCIAL HISTORY Tobacco Use: Social History Observation Description Date Details (start date - stop date) Current Smoker NA - NA Sex Assigned At : Social History Observation Description Sex Assigned At Unknown Tobacco Use/Smoking Question Answer Notes Patient is a current smoker Alcohol Screen Question Answer Notes Did you have a drink contain ing alcohol in the past year? Yes How often did you have a dri nk containing alcohol in the past year? Monthly or less (1 point) How many drinks did you have on a typical day when you were drinking in the past year? 1 or 2 drinks (0 point) How often did you have 6 or more drinks on one occasion in the past year? Never (0 point) Points 1 Interpretation Negative VITAL SIGNS BMI 24.74 kg/m2 03/05/2024 Blood pressure systolic 000 mm Hg 03/05/19 25 Blood pressure diastolic 00 mm Hg 025 Height 67 in 03/05/2024 Temperature 97.7 degrees Fahrenheit 03/05/19 25 Weight 158 lbs 03/05/2024 Encounters Encounter Location Date Provider Diagnosis [facility] [address] [place] [id number] 03/05/2024 Alex Garcia Jr Chronic hepatitis B B18.1 ASSESSMENTS Encounter Date Diagnosis Assessment Notes Treatment Notes Treatment Clinical Notes 03/05/2024 Chronic hepatitis B (ICD-10 - B18.1) Preventing hepatitis B or C material was printed PLAN OF TREATMENT Treatment Notes Assessment Notes Chronic hepatitis B Preventing hepatitis B or C material was printed Pending Test Test Name Order Date LIVER PROFILE 03/05/2024 CBC w/o DIFF 03/05/2024 PROTHROMBIN TIME (PT, INR) 03/05/2024 HEPATITIS B SURFACE ANTIBODY 03/05/2024 HEPATITIS B E ANTIBODY 03/05/2024 HEPATITIS B E ANTIGEN 03/05/2024 HEPATITIS B VIRAL DNA QUANT 03/05/2024 US ABDOMEN COMP WITH ELASTOGRAPHY 2024 Hepatitis B Surface Antigen 03/05/2024 Next Appt Details Follow Up: 1 Year, Reason: Provider Name:Alex robison Jr, 03/09/2025 09:00:00 AM, [address] [place] [address], [address], [place], [id number],
--- OUTSIDE RECORDS SUMMARY | 2024-04-03 07:50 | XMS_ITS | Patient Health Record ---
Author Organization [facility] Address [address] [place] [address] Care Team Providers Care Outdoor Power Equipment Mechanic Name Role Phone Annelise Guzman MDh Primary Care Provider Alex Tristan Jr [phone] ALLERGIES No Known Allergies RESULTS Component Value Reference Range Notes Liver Fibrosis Pnl Reviewed date:03/17/2024 08:46:24 AM Interpretation: Performing Lab:[facility], [address] [place] [phone] Notes/Report: Liver Fibrosis Score 0.11 Liver Fibrosis [...] a>0.62 and a<=1.00 : A3 (severe activity) UQD-Ygzar-1-Macroglobuli n 112 106-279 mg/dL FIB-Haptoglobin 48 43-212 mg/dL FIB-Apolipoprotein A1 138 94-176 mg/dL FIB-Total Bilirubin 0.5 0.2-1.2 mg/dL FIB-GGT 28 3-90 U/L FIB-ALT 39 9-46 U/L Reference ID [id number] Footnote SEE NOTE The reliability of results is dependent on compliance with the preanalytical and analytical conditions recommended by [employer]. The tests have to be deferred for: [...] The performance characteristics have been determined by [facility]. It has not been cleared or approved by the U.S. Food and Drug Administration. Performance characteristics refer to the analytical performance of the test. [employer], the associated logo, [employer] and all associated [employer] gibson are the registered trademarks of [employer]. All third libertarian gibson - (R) and (TM) - are the property of their respective owners. (C) 0098-2559 [employer]. All rights reserved. THIS TEST WAS PERFORMED AT: [facility] [place] [address] [place] [address] DANIEL DOHERTY MD,PHD,CRISTY Complete Blood Count Auto Di ff Reviewed date:03/06/2024 07:54:29 AM Interpretation: Performing Lab:[facility], [address] [place] [phone] Notes/Report: White Blood Count 5.8 4.8-10.8 X10*3/uL Red Blood Count 4.69 4.60-5.80 X10*6/uL Hemoglobin 15.2 14.0-18.0 g/dl Hematocrit 43.6 42.0-52.0 % Mean Corpuscular Volume 93.0 80.0-98.0 fL Mean Corpuscular Hemoglobin 32.4 27.0-33.0 pg Mean Corpuscular HGB Conc 34.9 31.0-36.0 g/dl Red Cell Distribution Width 12.2 11.0-16.0 % Platelet Count 230 160-400 X10*3/uL Mean Platelet Volume 9.7 9.4-12.4 fL Neutrophils Percent Auto 59.7 45-73 % Imm Gran Pct Auto 0.2 0.0-0.4 % Lymphocytes Percent Auto 30.0 20-40 % Monocytes Percent Auto 7.4 2-11 % Eosinophils Percent Auto 2.2 0-4 % Basophils Percent Auto 0.5 0-2 % NRBC Pct Auto 0.0 0.0-0.2 /100WBC Neutrophils Absolute Auto 3.5 2.0-8.3 x10*3/uL Imm Gran Abs Auto 0.01 0.00-0.03 X10*3/uL Lymphocytes Absolute Auto 1.8 1.2-4.9 X10*3/uL Monocytes Absolute Auto 0.4 0.1-1.2 X10*3/uL Eosinophils Absolute Auto 0.1 0.0-0.4 X10*3/uL Basophils Absolute Auto 0.0 0.0-0.2 X10*3/uL NRBC Abs Auto 0.000 0.0-0.012 X10*3/uL Prothrombin Time INR Reviewed date:03/06/2024 07:54:22 AM Interpretation: Performing Lab:[facility], [address] [place] [phone] Notes/Report: Prothrombin Time 10.9 10.9-12.4 SEC INTERNATIONAL NORM RATIO 0.9 0.9-1.1 INTERNATIONAL NORMALIZED RATIO (INR) REFERENCE RANGES Reference Range For patients not on anticoagulant therapy: 0.9 - 1.1 INR ranges for oral anticoagulant therapy: For prevention and treatment of venous thrombosis and pulmonary embolism: 2.0 - 3.0 For acute myocardial infarction with aspirin therapy: 2.0 - 3.0 For acute myocardial infarction without aspirin therapy: 3.0 - 4.0 For patients with mechanical prosthetic heart valves: 2.5 - 3.5 Liver Panel Reviewed date:03/05/2024 11:53:47 AM Interpretation: Performing Lab:[facility], [address] [place] [phone] Notes/Report: Bilirubin Total 0.6 0.0-1.0 mg/dL Bilirubin Direct 0.2 0.0-0.5 mg/dL Aspartate Amino Transferase 34 5-37 U/L Alanine Aminotransferase 57 0-40 U/L Total Protein 7.6 6.5-8.0 g/dL Albumin Level 4.6 3.5-5.0 g/dL Alkaline Phosphatase 49 39-117 U/L Hepatitis B Surface Antibody Reviewed date:03/06/2024 07:54:15 AM Interpretation: Performing Lab:[facility], [address] [place] [phone] Notes/Report: Hepatitis B Surface Antibody NONREACTIVE Nonreactive Nonreactive: < 8.00 mIU/mL Hepatitis BE Antibody Reviewed date:03/12/2024 08:24:41 AM Interpretation: Performing Lab:[address] [phone] Notes/Report: Hepatitis BE Antibody NON-REACTIVE NON-REACTIVE For additional information, please refer to http://education.[employer]/faq/[email or web address] 02 (This link is being provided for informational/ educational purposes only.) THIS TEST WAS PERFORMED AT: [facility] [address] [place] [phone] MARCIO KISER MD Hepatitis BE Antigen Reviewed date:03/12/2024 08:24:28 AM Interpretation: Performing Lab:[address] [phone] Notes/Report: Hepatitis BE Antigen REACTIVE NON-REACTIVE For additional information, please refer to [email or web address]/faq/[email or web address] 02 (This link is being provided for informational/ educational purposes only.) THIS TEST WAS PERFORMED AT: [facility] [address] [place] [phone] MARCIO KISER MD Hepatitis B Viral DNA Qn Reviewed date:03/12/2024 08:24:24 AM Interpretation: Performing Lab:[address] [phone] Notes/Report: Hepatitis B Viral DNA Qn - cp <1.00 DETECTED NOT DETECTED Log IU/mL HBV DNA was detected below 10 IU/mL. Viral nucleic acid detected below this level cannot be quantified by the assay. This test was performed using Real-Time Polymerase Chain Reaction. Reportable Range: 10 IU/mL to 1,000,000,000 IU/mL. (1.00 Log IU/mL to 9.00 Log IU/mL). THIS TEST WAS PERFORMED AT: [facility] [address] [place] [phone] MARCIO KISER MD Hepatitis B Viral DNA Qn-IU/mL <10 DETECTED NOT DETECTED IU/mL HBSAG QUEST CONF Reviewed date:03/12/2024 08:24:35 AM Interpretation: Performing Lab:[address] [phone] Notes/Report: HBsAG REACTIVE (Abnormal) REFERENCE RANGE: NON-REACTIVE For additional information, please refer to http://[employer]/faq/FAQ2 02 (This link is being provided for informational/ educational purposes only.) THIS TEST PERFORMED AT: [facility] [address] [place] [phone] SHOE PULLER: MARCIO KISER MD HBSAG Confirmation TNP REASON FOR REFERRAL No Information MEDICATIONS Medication SIG (Take, Route, Frequency, Duration) Notes Start Date End Date Status Tenofovir Disoproxil Fumarate 300 MG TAKE ONE TABLET BY MOUTH EVERY DAY for 90 Active IMMUNIZATIONS Vaccine Route Administration Date Status Comme nts Influenza Unknown 11/27/2017 Administered Influenza Unknown 04/09/2019 Refused Influenza Unknown 04/07/2020 Refused Influenza Unknown 02/16/2021 Refused Influenza Unknown 03/05/2023 Refused SOCIAL HISTORY Tobacco Use: Social History Observation [...] Never (0 point) Points 1 Interpretation Negative PROBLEMS Problem Type ICD Code Onset Dates Problem Status W/U Status Risk SNOMED Code Notes Problem Chronic hepatitis B (B18.1) Active confirmed 97080239 Problem Chronic viral hepatitis B without delta agent and without coma (B18.1) Active confirmed 22898835 VITAL SIGNS Temperature 97.7 degrees Fahrenheit 03/05/2024 Blood pressure diastolic 00 mm Hg 03/05/2024 Height 67 in 03/05/2024 Blood pressure systolic 000 mm Hg 03/05/2024 Weight 158 lbs 03/05/2024 BMI 24.74 kg/m2 03/05/2024 Encounters Encounter Location Date Provider Diagnosis [facility] [address] [place] [phone] 03/05/2024 Alex Garcia Jr Chronic hepatitis B B18.1 [facility] [address] [place] [phone] 03/05/2024 Alex Garcia Jr [facility] [address] [place] [phone] 03/17/2024 Alex Garcia Jr ASSESSMENTS Encounter Date Diagnosis Assessment Notes Treatment Notes Treatment Clinical Notes 03/05/2024 Chronic hepatitis B (ICD-10 - B18.1) Preventing hepatitis B or C material was printed PLAN OF TREATMENT Pending Test Test Name Order Date LIVER PROFILE 05/02/2021 LIVER PROFILE 03/05/2024 LIVER PROFILE 02/24/2021 LIVER PROFILE 04/07/2020 LIVER PROFILE 03/10/2021 LIVER PROFILE 03/05/2023 LIVER PROFILE 02/22/2022 CBC w DIFF 02/22/2022 CBC w/o DIFF 03/05/2023 CBC w/o DIFF 05/02/2021 CBC w/o DIFF 03/05/2024 CBC w/o DIFF 04/07/2020 PROTHROMBIN TIME (PT, INR) 03/05/2023 PROTHROMBIN TIME (PT, INR) 03/05/2024 HEPATITIS B SURFACE ANTIGEN 03/23/2017 HEPATITIS B SURFACE ANTIGEN 03/05/2023 HEPATITIS B SURFACE ANTIBODY 03/05/2023 HEPATITIS B SURFACE ANTIBODY 03/05/2024 HEPATITIS B E ANTIBODY 03/05/2024 HEPATITIS B E ANTIBODY 02/22/2022 HEPATITIS B E ANTIBODY 03/05/2023 HEPATITIS B E ANTIGEN 03/05/2024 HEPATITIS B E ANTIGEN 02/22/2022 HEPATITIS B E ANTIGEN 04/07/2020 HEPATITIS B E ANTIGEN 03/05/2023 HEPATITIS B VIRAL DNA QUANT 04/07/2020 HEPATITIS B VIRAL DNA QUANT 03/05/2023 HEPATITIS B VIRAL DNA QUANT 03/05/2024 HEPATITIS B VIRAL DNA QUANT 02/24/2021 HEPATITIS B VIRAL DNA QUANT 02/22/2022 HEPATITIS B VIRAL DNA QUANT 05/02/2021 HEPATITIS B VIRAL DNA QUANT 03/10/2021 HCV LIVER FIBROSIS, FIBRO TEST 2 HCV LIVER FIBROSIS, FIBRO TEST 1 US ABDOMEN COMP WITH ELASTOGRAPHY 2024 Hepatitis B Surface Antigen 03/05/2024 Next Appt Details Provider Name:Alex robison , 03/09/2025 09:00:00 AM, [address] [place] [address], [address], [place], [address], Insurance Providers Payer Name Payer Address Payer Phone Subscriber Number Group Number Insured Name Patient Relationship to Insured Coverage Start Date Coverage End Date [facility] [employer] [facility] [address] [address] [place], [place] [id number] HUEY KRISHNA Self - patient is the insured MEDICAID OF [facility] [employer] [facility] [address] [place] [address] [id number] HUEY KRISHNA Self - patient is the insured MEDICAL (GENERAL) HISTORY Medical History History ICD Code Chronic hepatitis B, probabl e vertical transmission, diagnosed in [facility] and treated with Viread for 2 years. This was stopped after he moved to this area and restarted by his primary care provider in 2017 after he was noted to have elevated liver function tests and a viral load greater than 170 million. 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
--- OUTSIDE RECORDS SUMMARY | 2024-04-03 07:50 | XMS_ITS ---
Author Organization [facility] Address [address] [place] [address] Care Team Providers Care Rn Embedded Name Role Phone Thomas COOPER Hostetter Primary Care Provider Reymundo Garcia Jr, Alex Unavailable REASON FOR VISIT Dr. Guzman Encounters Encounter Location Date Provider Diagnosis [facility] [address] [place] [address] 03/05/2024 Alex Gracia Jr PLAN OF TREATMENT Next Appt Details Provider Name:Alex robison Jr, 03/09/2025 09:00:00 AM, [address], [address], [place], [address],
--- OUTSIDE RECORDS SUMMARY | 2024-04-03 07:50 | XMS_ITS ---
Author Organization [facility] Address [address] [place] [address] Care Team Providers Care Online Marketing Specialist Name Role Phone Thomas COOPER Marcelo Primary Care Provider Reymundo Garcia Jr, Alex Unavailable REASON FOR VISIT labs Encounters Encounter Location Date Provider Diagnosis [facility] [address] [place] [address] 03/17/2024 Alex Garcia Jr PLAN OF TREATMENT Next Appt Details Provider Name:Alex robison Jr, 03/09/2025 09:00:00 AM, [address], [address], [place], [address],
== END 2024-04-03 07:48 | disposition home or self-care (01) ==
LOC: HO.US 07:47
PROVIDERS: PCP Internal Medicine; Visit Provider Internal Medicine Gastroenterology
DX: B18.1 Chronic viral hepatitis B without delta-agent (principal)
CPT/HCPCS: 76700; 76981

== ENCOUNTER → 2024-04-03 07:49 | Outpatient (BNV) | payer OTHER, SELFPAY | PROVIDERS: PCP Internal Medicine; Visit Provider Radiology Diagnostic Radiology | DX: B18.1 Chronic viral hepatitis B without delta-agent (principal) | CPT/HCPCS: 76700 ==